=== PATIENT | female | born 1960 | race Caucasian/White ===

== ENCOUNTER 2018-07-16 07:21 | Day surgery (SDC) | payer OTHER ==
[2018-07-16] MEDS: SOD CHLORIDE 0.9% 1,000 ML IV (06:00)
[~2018-07-16 07:21] MED LIST: CEFAZOLIN 2 GM/50 ML (PMX) 50 ML IVPB
[2018-07-16] MEDS ORDERED: FENTAnyl 50 MCG/ML VIAL (12:03)
[2018-07-16] MEDS ORDERED: NEOSTIGMINE 10 MG INJ (12:15)
[2018-07-16] MEDS ORDERED: CEFAZOLIN 1 GM INJ (12:15)
[2018-07-16] MEDS ORDERED: SUCCINYLCHOLINE CHLORIDE 100 MG/5 ML SYG IV (12:15)
[2018-07-16] MEDS ORDERED: GLYCOPYRROLATE 0.4 MG INJ (12:15)
[2018-07-16] MEDS ORDERED: ROCURONIUM 50 MG INJ (12:15)
[2018-07-16] MEDS ORDERED: LIDOCAINE 100 MG SYRINGE (12:15)
[2018-07-16] MEDS ORDERED: PROPOFOL 20 ML (12:15)
[2018-07-16] MEDS: BUPIVACAINE 0.5%/EPI (SDV) 30 ML INJ (12:38)
[2018-07-16] MEDS ORDERED: DEXAMETHASONE 4 MG/ML 5 ML INJ (12:41)
[2018-07-16] MEDS ORDERED: ONDANSETRON 4 MG INJ (12:41)
[2018-07-16] MEDS ORDERED: ONDANSETRON 4 MG INJ IV (13:00)
[2018-07-16] MEDS ORDERED: FENTAnyl 50 MCG/ML VIAL IV ×2 (13:00)
[2018-07-16] MEDS ORDERED: HYDROmorphONE 1 MG/5 ML IV SYRINGE IV ×3 (13:00)
[2018-07-16] MEDS ORDERED: ALBUTEROL 0.083% (NEB) 2.5 MG/3 ML AMP HHN (13:00)
[2018-07-16] MEDS ORDERED: DIPHENHYDRAMINE 50 MG INJ IV (13:00)
[2018-07-16] MEDS: MEPERIDINE 25 MG INJ IV (13:29)
[2018-07-16] MEDS: METOCLOPRAMIDE 10 MG INJ IV (13:29)
[2018-07-16] MEDS: FENTAnyl 50 MCG/ML VIAL IV (13:29)
[2018-07-16] MEDS ORDERED: HYDROCODONE/APAP (5/325) TAB PO (14:00)
[2018-07-16] MEDS: CALCIUM CARBONATE 500 MG CHEW TAB PO (17:26)
[2018-07-16] MEDS: HYDROCODONE/APAP (5/325) TAB PO (18:05)
[2018-07-16] MEDS ORDERED: IBUPROFEN 800 MG TAB PO (21:00)
== END 2018-07-16 18:45 | disposition home or self-care (01) ==
LOC: SDS 07:21
DX: K64.1 Second degree hemorrhoids (principal)
CPT/HCPCS: 46260; 88304

== ENCOUNTER 2018-10-22 06:43 | Day surgery (SDC) | payer OTHER ==
[2018-10-22 07:53] LABS: ADD MAN DIFF? NO
[2018-10-22 07:56] LABS: BASOPHILS % 0.6 % (0.0-2.0); EOSINOPHILS # 0.1 10^3/ul (0.0-0.5); EOSINOPHILS % 2.1 % (0.0-7.0); HEMATOCRIT 40.5 % (37.0-47.0); HEMOGLOBIN 13.8 g/dl (12.0-16.0); LYMPHOCYTES # 1.4 10^3/ul (0.8-2.9); LYMPHOCYTES % 27.6 % (15.0-51.0); MEAN CORPUSCULAR HEMOGLOBIN 29.6 pg (29.0-33.0); MEAN CORPUSCULAR HGB CONC 34.1 g/dl (32.0-37.0); MEAN CORPUSCULAR VOLUME 86.7 fl (82.0-101.0); MEAN PLATELET VOLUME 10.5 fl (7.4-10.4); MONOCYTE # 0.5 10^3/ul (0.3-0.9); MONOCYTES % 8.8 % (0.0-11.0); NEUTROPHIL # 3.1 10^3/ul (1.6-7.5); NEUTROPHILS % 60.9 % (39.0-77.0); PLATELET COUNT 234 10^3/UL (140-415); RED BLOOD COUNT 4.67 10^6/ul (4.20-5.40); RED CELL DISTRIBUTION WIDTH 12.9 % (11.5-14.5)
[2018-10-22 07:56] LABS: WHITE BLOOD COUNT 5.1 10^3/ul (4.8-10.8)
[2018-10-22] MEDS: SOD CHLORIDE 0.9% 1,000 ML IV (07:59)
[2018-10-22 08:14] LABS: ANION GAP 7 (5-13); BLOOD UREA NITROGEN 20 mg/dl (7-20); CALCIUM 10.2 mg/dl (8.4-10.2); CARBON DIOXIDE 29 mmol/L (21-31); CHLORIDE 107 mmol/L (97-110); CREATININE 0.57 mg/dl (0.44-1.00); Estimated GFR > 60 mL/min (>60); GLUCOSE 96 mg/dl (70-220); INR 0.94; POTASSIUM 4.2 mmol/L (3.5-5.1); PROTIME 12.7 Sec (11.9-14.9); SODIUM 143 mmol/L (135-144)
[2018-10-22 08:16] LABS: PARTIAL THROMBOPLASTIN TIME 35.1 Sec (23.0-35.0)
[2018-10-22] MEDS ORDERED: PROPOFOL 60 ML (10:16)
[2018-10-22] MEDS ORDERED: CEFAZOLIN 1 GM INJ (10:16)
[2018-10-22] MEDS ORDERED: ROCURONIUM 50 MG INJ (10:16)
[2018-10-22] MEDS ORDERED: LIDOCAINE 2% (SDV) 5 ML INJ (10:16)
[2018-10-22] MEDS ORDERED: FENTAnyl 50 MCG/ML VIAL (10:17)
[2018-10-22] MEDS ORDERED: ONDANSETRON 4 MG INJ (10:17)
[2018-10-22] MEDS ORDERED: FAMOTIDINE 20 MG INJ (10:17)
[2018-10-22] MEDS ORDERED: DEXAMETHASONE 4 MG/ML 5 ML INJ (10:17)
[2018-10-22] MEDS ORDERED: FENTAnyl 50 MCG/ML VIAL IV ×2 (10:30)
[2018-10-22] MEDS ORDERED: DIPHENHYDRAMINE 50 MG INJ IV (10:30)
[2018-10-22] MEDS ORDERED: morphine 2 MG INJ IV ×2 (10:30)
[2018-10-22] MEDS ORDERED: HYDROmorphONE 1 MG/5 ML IV SYRINGE IV ×3 (10:30)
[2018-10-22] MEDS ORDERED: LABETALOL HCL 20MG INJ IV (10:30)
[2018-10-22] MEDS ORDERED: OXYCODONE/ACETAMINOPHEN (5/325) TAB PO ×2 (10:30)
[2018-10-22] MEDS ORDERED: ALBUTEROL 0.083% (NEB) 2.5 MG/3 ML AMP HHN (10:30)
[2018-10-22] MEDS: CEFAZOLIN 1 GM/50 ML (PMX) 50 ML IVPB (11:05)
[2018-10-22] MEDS ORDERED: EPHEDrine 25 MG/5 ML SYG (11:12)
[2018-10-22] MEDS: LIDOCAINE 1% (MPF) 30 ML INJ (11:16)
[2018-10-22] MEDS ORDERED: SUGAMMADEX SODIUM 200 MG/2 ML VIAL IV (11:34)
[2018-10-22] MEDS: LIDOCAINE 1%/EPI 30 ML INJ INJ (11:35)
[2018-10-22] MEDS ORDERED: LIDOCAINE 1%/EPI 30 ML INJ (11:38)
[2018-10-22] MEDS: MEPERIDINE 25 MG INJ IV (12:14)
[2018-10-22] MEDS: ONDANSETRON 4 MG INJ IV (12:14)
[2018-10-22] MEDS: FAMOTIDINE 20 MG INJ IV (12:48)
[2018-10-22] MEDS: ALUMINUM HYDROXIDE 30 ML CUP PO (12:55)
== END 2018-10-22 14:40 | disposition home or self-care (01) ==
LOC: SDS 06:43
DX: K62.4 Stenosis of anus and rectum (principal); J45.909 Unspecified asthma, uncomplicated
CPT/HCPCS: 46604; 71045; 80048; 85025; 85610; 85730; 93005